=== PATIENT | female | born 1985 | race Caucasian/White ===

== ENCOUNTER 2019-09-26 05:11 | Emergency (ER) | payer SELFPAY ==
[~2019-09-26] VITALS: Ht 167.6 cm; Wt 77.8 kg
[~2019-09-26 05:11] MED LIST: OXYC1TAB15 PO
--- NOTE | 2019-09-26 05:38 | PHYS DOC ---
Past History Past Medical History: Hypertension, Kidney Stones, Other Additional Past Medical Histor: heart murmur (JOSE ALEJANDRO BENNETT MD) Past Surgical History: No Surgical History (JOSE ALEJANDRO BENNETT MD) Smoking: Cigarettes Alcohol Use: Occasionally Drug Use: None (JOSE ALEJANDRO BENNETT MD) Adult General Chief Complaint Chief Complaint: FLANK PAIN HPI HPI Patient is a 34-year-old female presents to the emergency department for evaluation of relatively sudden onset right flank pain, radiating around towards her right lower abdomen, which began yesterday. Nausea and vomiting. She has not had any hematuria, or dysuria. Her LMP ended about 3 days ago. She has not had any fevers or chills. There are no alleviating or exacerbating factors to her symptoms. She states that she has had kidney stones in the past, and her current symptoms feel similar. (JOSE ALEJANDRO BENNETT MD) Review of Systems Review of Systems Constitutional: Denies fever or chills [] Eyes: Denies change in visual acuity, redness, or eye pain [] HENT: Denies nasal congestion or sore throat [] Respiratory: Denies cough or shortness of breath [] Cardiovascular: The patient denies any shortness of breath, chest pain, palpitations, or orthopnea [] GI: As per history of present illness[] : Denies dysuria or hematuria [] Musculoskeletal: Denies back pain or joint pain [] Integument: Denies rash or skin lesions [] Neurologic: Denies headache, focal weakness or sensory changes [] Endocrine: Denies polyuria or polydipsia [] All other systems were reviewed and found to be within normal limits, except as documented in this note. (JOSE ALEJANDRO BENNETT MD) Current Medications Current Medications Current Medications Medications (Trade) Dose Ordered Sig/Clovis Start Time Stop Time Status Last Admin Dose Admin Ketorolac Tromethamine (Toradol 30mg Vial) 30 mg 1X ONCE 09/26/19 06:00 09/26/19 06:01 Ondansetron HCl (Zofran) 4 mg 1X ONCE 09/26/19 06:00 09/26/19 06:01 Sodium Chloride 1,000 ml @ 1,000 mls/hr Q1H 09/26/19 06:00 09/26/19 06:59 09/26/19 05:34 1,000 MLS/HR (JOSE ALEJANDRO BENNETT MD) Allergies Allergies Allergies Coded Allergies Type Severity Reaction Last Updated Verified Penicillins Allergy Intermediate Rash 10/04/13 Yes tramadol Allergy Intermediate anxiety 10/04/13 Yes (JOSE ALEJANDRO BENNETT MD) Physical Exam Physical Exam PHYSICAL EXAM: CONSTITUTIONAL: Well developed, well nourished HEAD: normocephalic, atraumatic EENT: PERRL, EOMI. Conjunctivae normal color, sclerae non-icteric; moist mucous membranes. NECK: Supple, non-tender; no meningismus. LUNGS: Lungs CTA, breathing even and unlabored. Normal air movement. HEART: Regular rate and rhythm, no murmur CHEST: No deformity; non-tender ABDOMEN: The abdomen is soft, there is mild tenderness to palpation to the right mid, and lower abdomen, without focal suprapubic tenderness, rebound, or guarding, the remainder the abdomen is soft and non-tender, no masses or bruits. EXTREM: Normal ROM; no deformity, no calf tenderness. Normal pulses palpable in all extremities. There is no pedal edema. SKIN: No rash; no diaphoresis NEURO: Alert; normal speech and cognition; CN's grossly intact; strength grossly intact without focal deficit. BACK: There is moderate right-sided CVA tenderness to palpation, there is no left-sided CVA TTP.There is no bony tenderness to palpation of the thoracic or lumbar spine. (JOSE ALEJANDRO BENNETT MD) Physical Exam Constitutional: Well developed, well nourished, non-toxic appearance HENT: Normocephalic, atraumatic, oropharynx moist Eyes: Conjunctiva normal, no discharge Neck: Normal range of motion, no tenderness, supple Cardiovascular: Heart rate normal, regular rhythm Lungs & Thorax: Bilateral breath sounds clear to auscultation, no wheezing Abdomen: Soft, no tenderness, no guarding/rebound tenderness/distention Skin: Warm, dry, no erythema, no rash Back: No tenderness, right CVA tenderness Extremities: No tenderness, ROM intact, no edema Neurologic: Alert and oriented X 3, no focal deficits noted Psychologic: Affect normal, judgement normal (SOLISMODESTO RICHTER DO) Current Patient Data Vital Signs Vital Signs Date Time Temp Pulse Resp B/P (MAP) Pulse Ox O2 Delivery O2 Flow Rate FiO2 09/26/19 05:19 98.2 88 16 140/89 (106) 98 Room Air (JOSE ALEJANDRO BENNETT MD) EKG EKG [] (JOSE ALEJANDRO BENNETT MD) Radiology/Procedures Radiology/Procedures [] (JOSE ALEJANDRO BENNETT MD) Radiology/Procedures PROCEDURE: CT ABDOMEN PELVIS WO CONTRAST EXAM: CT Abdomen and Pelvis with IV contrast CLINICAL HISTORY: Right flank pain. COMPARISON: 05/11/2014, 05/05/2014 TECHNIQUE: Helical CT of the abdomen and pelvis was performed without the administration of IV contrast. Axial, coronal and sagittal reformatted images were generated. ---PQRS compliance statement - One or more of the following individualized dose reduction techniques were utilized for this study: 1. Automated exposure control 2. Adjustment of the mA and/or kV according to patient size 3. Use of iterative reconstruction technique--- FINDINGS: Lack of intravenous contrast limits evaluation of solid organs, vasculature, and lymph nodes. Lower chest: Lung bases are clear. Abdomen and pelvis: Liver and biliary system: No focal liver lesion. Gallbladder is normal. No biliary duct dilatation. Spleen: Unremarkable Pancreas: Unremarkable Adrenal glands: Unremarkable Kidneys: Moderate right hydronephrosis and hydroureter. Punctate calculus is seen within the distal right ureter (series 2 image 136). Associated infiltration is seen about the right kidney with right kidney enlargement. No focal renal lesion. No left hydronephrosis or hydroureter. Lymph nodes/retroperitoneum: No abdominal or pelvic lymphadenopathy. Vessels: Aorta is normal in caliber. Bowel/Peritoneal cavity: Moderate colonic stool content is seen. No small or large bowel dilatation. No evidence for bowel obstruction. Appendix is normal. No abdominal or pelvic ascites. Abdominal wall: Unremarkable Bladder: Bladder is unremarkable. Bones: Osseous structures are grossly unremarkable IMPRESSION: Punctate calculus within the distal right ureter near the ureterovesicular junction results in moderate right hydronephrosis and hydroureter. Suspect superimposed infection/pyelonephritis given the significant right perinephric infiltration and right kidney edema/enlargement. Electronically signed by: Sukh Truong MD (09/26/2019 6:53 AM) [facility] (MODESTO SOLIS DO) Course & Med Decision Making Course & Med Decision Making Pertinent Labs and Imaging studies reviewed. (See chart for details) []6:00 AM: Patient care was turned over to Dr. Solis at shift change, pending diagnostic workup and final disposition. (JOSE ALEJANDRO BENNETT MD) Course & Med Decision Making Sign out received from Dr. Bennett for patient with right flank pain. Hx of nephrolithiasis. Labs reviewed. CT abd/pelvis pending. UA pending. Patient seen and evaluated in the Emergency Department. UA without significant signs of infection. (appears contaminated: negative LE and nitrite) CT abd/pelvis with distal right punctate ureteral calculi with moderate hydronephrosis. Flomax given. Patient stable for discharge with outpatient follow-up with PCP/urology. Discussed findings and plan with patient and family, who acknowledge understanding and agreement. (MODESTO SOLIS DO) Dragon Disclaimer Dragon Disclaimer This electronic medical record was generated, in whole or in part, using a voice recognition dictation system. (JOSE ALEJANDRO BENNETT MD) Departure Departure: Impression: Primary Impression: Kidney stone Disposition: HOME, SELF-CARE Condition: STABLE Referrals: DANIELLE ZHANG DO (PCP) Patient Instructions: Diet for Kidney Stones, Kidney Stones, [id number] Scripts Tamsulosin Hcl (FLOMAX) 0.4 Mg Cap.er.24h 1 CAP PO DAILY for kidney stone for 5 Days, #5 CAP Prov: MODESTO SOLIS DO 09/26/19 Ondansetron (ONDANSETRON ODT) 4 Mg Tab.rapdis 1 TAB PO PRN Q6-8HRS PRN for NAUSEA, #16 TAB Prov: MODESTO SOLIS DO 09/26/19 Hydrocodone Bit/Acetaminophen (NORCO 5-325 TABLET) 1 Each Tablet 0.5-1 TAB PO Q6HRS PRN for PAIN, #10 TAB Prov: MODESTO SOLIS DO 09/26/19 JOSE ALEJANDRO BENNETT MD Sep 26, 2019 05:38 MODESTO SOLIS DO Sep 26, 2019 06:46
[2019-09-26] MEDS ORDERED: ONDANSETRON PF 4 MG/2 ML VIAL. IVP ONE (06:00)
[2019-09-26] MEDS ORDERED: KETOROLAC 30 MG/ML VIAL. IVP ONE (06:00)
[2019-09-26] MEDS ORDERED: IV NORMAL SALINE 1,000ML 1,000 ML IV SCH (06:00)
[2019-09-26 06:09] LABS: BASO % 0 % (0-3); EOS # 0.2 x10^3/uL (0.0-0.7); EOS % 2 % (0-3); HEMATOCRIT 44.4 % (36.0-47.0); HEMOGLOBIN 14.9 g/dL (12.0-15.5); LYMPH # 3.3 x10^3/uL (1.0-4.8); LYMPH % 28 % (24-48); MEAN CORPUSCULAR HEMOGLOBIN 31 pg (25-35); MEAN CORPUSCULAR HGB CONC 34 g/dL (31-37); MEAN CORPUSCULAR VOLUME 92 fL (79-100); MONO # 0.8 x10^3/uL (0.0-1.1); MONO % 7 % (0-9); NEUT # 7.3 x10^3uL (1.8-7.7); NEUT % 63 % (31-73); PLATELET COUNT 279 x10^3/uL (140-400); RED BLOOD COUNT 4.81 x10^6/uL (3.50-5.40); RED CELL DISTRIBUTION WIDTH 13.2 % (11.5-14.5); WHITE BLOOD COUNT 11.6 x10^3/uL (4.0-11.0)
[2019-09-26 06:14] LABS: CALCIUM 8.5 mg/dL (8.5-10.1)
[2019-09-26 06:15] LABS: GFR 63.5
[2019-09-26 06:18] LABS: POTASSIUM 3.7 mmol/L (3.5-5.1)
[2019-09-26 06:23] LABS: ALBUMIN 3.5 g/dL (3.4-5.0); TOTAL BILIRUBIN 0.1 mg/dL (0.2-1.0); TOTAL PROTEIN 6.9 g/dL (6.4-8.2)
--- NOTE | 2019-09-26 06:56 | RAD ---
EXAM: CT Abdomen and Pelvis with IV contrast CLINICAL HISTORY: Right flank pain. COMPARISON: 05/11/2014, 05/05/2014 TECHNIQUE: Helical CT of the abdomen and pelvis was performed without the administration of IV contrast. Axial, coronal and sagittal reformatted images were generated. ---PQRS compliance statement - One or more of the following individualized dose reduction techniques were utilized for this study: 1. Automated exposure control 2. Adjustment of the mA and/or kV according to patient size 3. Use of iterative reconstruction technique--- FINDINGS: Lack of intravenous contrast limits evaluation of solid organs, vasculature, and lymph nodes. Lower chest: Lung bases are clear. Abdomen and pelvis: Liver and biliary system: No focal liver lesion. Gallbladder is normal. No biliary duct dilatation. Spleen: Unremarkable Pancreas: Unremarkable Adrenal glands: Unremarkable Kidneys: Moderate right hydronephrosis and hydroureter. Punctate calculus is seen within the distal right ureter (series 2 image 136). Associated infiltration is seen about the right kidney with right kidney enlargement. No focal renal lesion. No left hydronephrosis or hydroureter. Lymph nodes/retroperitoneum: No abdominal or pelvic lymphadenopathy. Vessels: Aorta is normal in caliber. Bowel/Peritoneal cavity: Moderate colonic stool content is seen. No small or large bowel dilatation. No evidence for bowel obstruction. Appendix is normal. No abdominal or pelvic ascites. Abdominal wall: Unremarkable Bladder: Bladder is unremarkable. Bones: Osseous structures are grossly unremarkable IMPRESSION: Punctate calculus within the distal right ureter near the ureterovesicular junction results in moderate right hydronephrosis and hydroureter. Suspect superimposed infection/pyelonephritis given the significant right perinephric infiltration and right kidney edema/enlargement. Electronically signed by: Sukh Truong MD (09/26/2019 6:53 AM) [place] [id number]
[2019-09-26] MEDS ORDERED: ONDA4TAB12 PO (07:03)
[2019-09-26] MEDS ORDERED: HYDR-3165 PO (07:03)
[2019-09-26] MEDS ORDERED: TAMS0.4C97 PO (07:03)
[2019-09-26] MEDS ORDERED: TAMSULOSIN 0.4 MG CAP.ER.24H. PO ONE (07:15)
[2019-09-26 07:17] LABS: CLARITY,URINE CLEAR; COLOR,URINE YELLOW
[2019-09-26 07:18] LABS: BILIRUBIN,URINE NEG (NEG); GLUCOSE,URINE NEG (NEG); NITRITE,URINE NEG (NEG); UROBILINOGEN,URINE 0.2 mg/dL (0.2 mg/dL)
[2019-09-26 07:19] LABS: BACTERIA,URINE MOD /HPF (0-FEW); SQUAMOUS EPITHELIAL CELL,UR FEW /LPF
[2019-09-26 07:29] VITALS: BP 129/87
== END 2019-09-26 07:30 | disposition home or self-care (01) ==
LOC: ER 05:11
DX: N20.0 Calculus of kidney (principal); R11.2 Nausea with vomiting, unspecified; I10 Essential (primary) hypertension; F17.210 Nicotine dependence, cigarettes, uncomplicated
CPT/HCPCS: 36415; 74176; 80053; 81001; 81025; 83690; 85025; 96361; 96374; 96375; 99285; J1885; J2405; J3010; J7030

== ENCOUNTER 2020-06-26 20:06 | Emergency (ER) | payer SELFPAY ==
[~2020-06-26] VITALS: Ht 167.6 cm; Wt 75.0 kg
[~2020-06-26 20:06] MED LIST changes: +HYDR-3165 PO; +ONDA4TAB12 PO; +TAMS0.4C97 PO
[2020-06-26 20:16] VITALS: BP 121/81
[2020-06-26] MEDS ORDERED: MORPHINE SULFATE 10 MG/ML SYRINGE. SQ ONE (21:00)
--- NOTE | 2020-06-26 21:32 | RAD ---
PROCEDURE: HUMERUS RIGHT, ELBOW RIGHT 3V STUDY DATE: 06/26/2020 CLINICAL INDICATION / HISTORY: Reason: fall / Spl. Instructions: / History: . TECHNIQUE: Right Elbow 3 views COMPARISON: None FINDINGS: 3 views of the right elbow demonstrate no evidence of fracture, subluxation, or dislocation. Soft tissues unremarkable. IMPRESSION: No acute osseous abnormality in the right elbow. PROCEDURE: HUMERUS RIGHT, ELBOW RIGHT 3V STUDY DATE: 06/26/2020 CLINICAL INDICATION / HISTORY: Reason: fall / Spl. Instructions: / History: . TECHNIQUE: Two views of the right humerus were obtained COMPARISON: None FINDINGS: The osseous structures are normally mineralized. There is normal bony alignment present. There is no evidence of acute fracture or dislocation identified. The overlying soft tissues are grossly unremarkable. IMPRESSION: Unremarkable examination of the right humerus. Electronically signed by: Matthew Pitts MD (06/26/2020 9:29 PM) [facility] [place]
--- NOTE | 2020-06-26 21:35 | RAD ---
EXAM: CT Head without IV contrast INDICATION: Reason: Head injury with fall down stairs. / Spl. Instructions: / History: TECHNIQUE: Multi-detector row CT images were obtained of the head without the use of IV contrast. All CT scans performed at this facility utilize dose optimization techniques as appropriate to the exam, including the following: Automated exposure control and adjustment of the mA and/or KV according to patient size (this includes techniques or standardized protocols for targeted exams where dose is indication/reason for exam). COMPARISON: None FINDINGS: BRAIN PARENCHYMA: No evidence of acute intraparenchymal hemorrhage or infarct. No abnormal parenchymal density or mass. VENTRICLES & EXTRA-AXIAL SPACES: Ventricles are within normal limits. Basilar cisterns are patent. No pathologic extra-axial fluid collection or mass. Cerebellar tonsils are low-lying but not ectopic. ORBITS: Orbital contents are unremarkable. SINUSES: Visualized paranasal sinuses and mastoid air cells are clear. OSSEOUS & SOFT TISSUES: Calvarium and skull base are intact. Tongue piercing present along with lower lip, bilateral eyelid, and bilateral ear piercings present. IMPRESSION: No acute intracranial pathology.. Electronically signed by: Matthew Pitts MD (06/26/2020 9:32 PM) [facility] – [place]
--- NOTE | 2020-06-26 21:50 | PHYS DOC ---
Past History Past Medical History: Hypertension, Kidney Stones, Other Additional Past Medical Histor: heart murmur Past Surgical History: No Surgical History Smoking: Cigarettes Alcohol Use: Rarely Drug Use: None General Adult EDM: Chief Complaint: MECHANICAL FALL HPI: HPI: ".. I fell going down the stairs... ". " I was going down the last flight.. maybe 6 to 7.. to get my dog Heme.. un- tangled... I slipped on stairs some dirt or gravel.. and hit this Rt. arm and elbow bad.. and banged my head off the stairs...maybe luis e blacked out for a second.. " Patient is a 35 year old female who presents with above hx and fall down stairs. Pt. complaints of Rt elbow and head injury. Patient reports she had momentary loss of consciousness. Patient still complains of contusion to head and upper neck tenderness. Has distal sensation in her right arm. Patient is right-hand dominant. Does have obvious swelling of right elbow. Movement exacerbates pain. Cap refill in fingers is equal to left hand. No recent travel or specific ill contacts. No history immunosuppression. Patient reports she feels she is up-to-date with her tetanus. The pt. follows with Dr. Zhang . Review of Systems: Review of Systems: Constitutional: Denies fever or chills Eyes: Denies change in visual acuity HENT: Denies nasal congestion or sore throat . Complains of head injury and upper neck pain Respiratory: Denies cough or shortness of breath Cardiovascular: Denies chest pain or edema GI: Denies abdominal pain, nausea, vomiting, bloody stools or diarrhea : Denies dysuria Musculoskeletal: Denies back pain . Complains of right elbow pain Integument: Denies rash Neurologic: Complains of headache. Patient denies, focal weakness or sensory changes Endocrine: Denies polyuria or polydipsia Lymphatic: Denies swollen glands Psychiatric: Denies depression or anxiety Family History: Family History: Noncontributory to presentation Current Medications: Current Meds: Current Medications Medications (Trade) Dose Ordered Sig/Clovis Start Time Stop Time Status Last Admin Dose Admin Morphine Sulfate (Morphine 10mg Syringe) 10 mg 1X ONCE 06/26/20 21:00 06/26/20 21:01 DC 06/26/20 20:52 10 MG Allergies: Allergies: Allergies Coded Allergies Type Severity Reaction Last Updated Verified Penicillins Allergy Intermediate Rash 10/04/13 Yes tramadol Allergy Intermediate anxiety 10/04/13 Yes Physical Exam: PE: Constitutional: in acute distress, non-toxic appearance. [] HENT: Normocephalic, posterior contusion to scalp, bilateral external ears normal, oropharynx moist, no oral exudates, nose normal. TMs normal. Facial studs Eyes: PERRLA, EOMI, conjunctiva normal, no discharge. [] Neck: Normal range of motion, upper neck midline tenderness, supple, no stridor. [] Cardiovascular:Heart rate regular rhythm, no murmur [] Lungs & Thorax: Bilateral breath sounds equal at apex with scattered wheezes on auscultation [] Abdomen: Bowel sounds normal, soft, no tenderness, no masses, no pulsatile masses. [] Skin: Warm, dry, no erythema, no rash. Multiple tattoos. Back: No tenderness, no CVA tenderness. [] Extremities: No tenderness, no cyanosis, no clubbing, ROM intact, no edema. Except the findings in right elbow as per HPI Neurologic: Alert and oriented X 3, normal motor function in other extremities and sensory function except findings and left arm as per HPI. Patient reports no focal deficits noted. [] DTR +2 patella and brachial. Distal sensation intact. Psychologic: Affect anxious, judgement normal, mood normal. [] Current Patient Data: Labs: Laboratory Tests Test 06/26/20 20:46 POC Urine HCG, Qualitative hcg negative (Negative) Vital Signs: Vital Signs Date Time Temp Pulse Resp B/P (MAP) Pulse Ox O2 Delivery O2 Flow Rate FiO2 06/26/20 20:52 18 Room Air 06/26/20 20:16 98.3 88 121/81 (94) 97 EKG: EKG: [] Radiology/Procedures: Radiology/Procedures: [address] [address] IMAGING REPORT Signed PATIENT: PANCHITO GARCIA ACCOUNT: [id number] : 1985 LOCATION: ER AGE: 35 SEX: F EXAM STATUS: REG ER ORD. PHYSICIAN: MONTANA NIX MD REASON: Head injury with fall down stairs. PROCEDURE: CT HEAD AND CERVICAL SPINE WO EXAM: CT Head without IV contrast INDICATION: Reason: Head injury with fall down stairs. / Spl. Instructions: / History: TECHNIQUE: Multi-detector row CT images were obtained of the head without the use of IV contrast. All CT scans performed at this facility utilize dose optimization techniques as appropriate to the exam, including the following: Automated exposure control and adjustment of the mA and/or KV according to patient size (this includes techniques or standardized protocols for targeted exams where dose is indication/reason for exam). COMPARISON: None FINDINGS: BRAIN PARENCHYMA: No evidence of acute intraparenchymal hemorrhage or infarct. No abnormal parenchymal density or mass. VENTRICLES & EXTRA-AXIAL SPACES: Ventricles are within normal limits. Basilar cisterns are patent. No pathologic extra-axial fluid collection or mass. Cerebellar tonsils are low-lying but not ectopic. ORBITS: Orbital contents are unremarkable. SINUSES: Visualized paranasal sinuses and mastoid air cells are clear. OSSEOUS & SOFT TISSUES: Calvarium and skull base are intact. Tongue piercing present along with lower lip, bilateral eyelid, and bilateral ear piercings present. IMPRESSION: No acute intracranial pathology.. Electronically signed by: Clementine Pitts MD (06/26/2020 9:32 PM) [facility] – [place] DICTATED AND SIGNED BY: CLEMENTINE PITTS MD DATE: 06/26/202131 CC: MONTANA NIX MD; DANIELLE ZHANG DO ~ [][address] [address] IMAGING REPORT Signed PATIENT: PANCHITO GARCIA ACCOUNT: [id number] : 1985 LOCATION: ER AGE: 35 SEX: F EXAM STATUS: REG ER ORD. PHYSICIAN: MONTANA NIX MD REASON: fall PROCEDURE: ELBOW RIGHT 3V PROCEDURE: HUMERUS RIGHT, ELBOW RIGHT 3V STUDY DATE: 06/26/2020 CLINICAL INDICATION / HISTORY: Reason: fall / Spl. Instructions: / History: . TECHNIQUE: Right Elbow 3 views COMPARISON: None FINDINGS: 3 views of the right elbow demonstrate no evidence of fracture, subluxation, or dislocation. Soft tissues unremarkable. IMPRESSION: No acute osseous abnormality in the right elbow. PROCEDURE: HUMERUS RIGHT, ELBOW RIGHT 3V STUDY DATE: 06/26/2020 CLINICAL INDICATION / HISTORY: Reason: fall / Spl. Instructions: / History: . TECHNIQUE: Two views of the right humerus were obtained COMPARISON: None FINDINGS: The osseous structures are normally mineralized. There is normal bony alignment present. There is no evidence of acute fracture or dislocation identified. The overlying soft tissues are grossly unremarkable. IMPRESSION: Unremarkable examination of the right humerus. Electronically signed by: Clementine Pitts MD (06/26/2020 9:29 PM) [facility] – [place], [place] DICTATED AND SIGNED BY: CLEMENTINE PITTS MD DATE: 06/26/202128 CC: MONTANA NIX MD; DANIELLE ZHANG DO ~ Heart Score: Risk Factors: Risk Factors: DM, Current or recent (<one month) smoker, HTN, HLP, family history of CAD, obesity. Risk Scores: Score 0 - 3: 2.5% MACE over next 6 weeks - Discharge Home Score 4 - 6: 20.3% MACE over next 6 weeks - Admit for Clinical Observation Score 7 - 10: 72.7% MACE over next 6 weeks - Early Invasive Strategies Course & Med Decision Making: Course & Med Decision Making Pertinent Labs and Imaging studies reviewed. (See chart for details) Ice packs as needed. Sling. Tylenol and Ibuprofen for pain. If vomits more than once or mental status changes, or any concerns return for re-exam. Follow up with Dr. Zhang. Re-xray elbow in two weeks if classifier tender to eval. for missed radial head fracture. Monitor for any mental status changes. Must have re-exam if vomits more than once. Must return if any concerns.. Stay with someone that can evaluate you if you have any status changes. Impression: 1. Slip and fall 2. Contusions 3.. Head injury-concussion 4. Right elbow injury-some concern for a nondisplaced proximal radial head fracture (Currently radiology does not note a fx) [] Arnaldo Disclaimer: Arnaldo Disclaimer: This electronic medical record was generated, in whole or in part, using a voice recognition dictation system. Departure Departure: Disposition: 01 DC HOME SELF CARE/HOMELESS Condition: STABLE Referrals: DANIELLE ZHANG DO (PCP) Arnaldo Disclaimer This chart was dictated in whole or in part using Voice Recognition software in a busy, high-work load, and often noisy Emergency Department environment. It may contain unintended and wholly unrecognized errors or omissions. MONTANA NIX MD Jun 26, 2020 21:50
== END 2020-06-26 22:20 | disposition home or self-care (01) ==
LOC: ER 20:06
DX: M25.521 Pain in right elbow (principal); M25.511 Pain in right shoulder; I10 Essential (primary) hypertension; F17.210 Nicotine dependence, cigarettes, uncomplicated; Z87.442 Personal history of urinary calculi
CPT/HCPCS: 70450; 72125; 73060; 73080; 81025; 96372; 99285; J2270